=== PATIENT | male | born 1955 | race Caucasian/White ===

== ENCOUNTER 2020-09-05 06:35 | Day surgery (SDC) | payer MEDICARE, BC ==
[2020-09-05] MEDS ORDERED: Sodium Chloride 0.9% 1,000 ML IV SCH (07:00)
[2020-09-05] MEDS ORDERED: fentaNYL 100 MCG/2 ML SDV ONE (07:18)
[2020-09-05] MEDS ORDERED: Midazolam 1 MG/ML 2 ML SDV ONE (07:18)
[2020-09-05] MEDS ORDERED: Propofol 200 MG/20 ML SDV ONE (07:18)
[2020-09-05] MEDS ORDERED: ceFAZolin 1 GM in Premix Bag 1 BAG IV ONE (07:30)
--- NOTE | 2020-09-05 08:32 | OR ---
DATE OF PROCEDURE: 09/05/2020 SURGEON: Oni Lynch MD PROCEDURE: Colonoscopy. FINDINGS: Normal colonoscopy. COMPLICATIONS: None. TELEPHONE MAINTAINER: None. ANESTHESIA: MAC. PREOPERATIVE DIAGNOSIS: Family history of colorectal cancer. POSTOPERATIVE DIAGNOSIS: Family history of colorectal cancer. RISKS: Risks, benefits, alternatives, and limitations including, but not limited to infection, bleeding, and perforation were explained to the patient and he wished to proceed. PROCEDURE IN DETAIL: The patient was placed in left lateral decubitus position. Digital rectal exam was performed without abnormality. Scope was introduced and advanced atraumatically up to the ileocecal valve. A photo was taken of this. No evidence of abnormality was noted. No masses. Scope was brought back to the ascending, transverse, descending colon, and retroflexed. No old or new blood. No masses. No diverticulosis. Prep was marginal with approximately 85% to 90% of the luminal surface could be seen. No abnormalities on retroflexion. The patient tolerated the procedure well. Greater than 10 minutes was spent removing the scope. Oni Lynch MD /[id number]
== END 2020-09-05 09:05 | disposition home or self-care (01) ==
LOC: JP.SDS 06:35
PROVIDERS: ATTEND Surgery
DX: Z12.11 Encounter for screening for malignant neoplasm of colon (principal); I10 Essential (primary) hypertension; K21.9 Gastro-esophageal reflux disease without esophagitis; Z80.0 Family history of malignant neoplasm of digestive organs
CPT/HCPCS: J0690; J2250; J2704; J3010; J7030

== ENCOUNTER 2020-12-28 21:07 | Emergency (ER) | payer MEDICARE, BC ==
[2020-12-28] MEDS ORDERED: Silver Nitrate Applicator Each ONE (21:36)
--- NOTE | 2020-12-28 22:28 | EDM.PDOC ---
ED HPI GENERAL MEDICAL PROBLEM - General Chief Complaint: ENT Problem Stated Complaint: BLOODY NOSE WONT STOP BLEEDING, 3 HRS Time Seen by Provider: 12/28/20 21:26 Source of Information: Reports: Patient History Limitations: Reports: No Limitations - History of Present Illness INITIAL COMMENTS - FREE TEXT/NARRATIVE: Chte is a 65-year-old male presenting to the ED for evaluation of recurrent epistaxis. Patient states that he gets this every spring and fall. He has had recurrent episodes over the day and finally decided to come in because a kept recurring. He takes a full aspirin daily but does not take any other anticoagulants. He denies any trauma. - Related Data Allergies Allergy/AdvReac Type Severity Reaction Status Date / Time No Known Allergies Allergy Verified 12/28/20 21:18 Home Meds: Home Meds Tamsulosin HCl [Flomax] 0.4 mg PO DAILY 09/04/20 [History] lisinopriL [Lisinopril] 10 mg PO DAILY 09/04/20 [History] Aspirin 1 tab PO DAILY 12/28/20 [History] Sildenafil [Revatio] 1 tab PO DAILY 12/28/20 [History] Past Medical History HEENT History: Reports: None Cardiovascular History: Reports: Hypertension Gastrointestinal History: Reports: None Genitourinary History: Reports: Prostate Disorder, Other (See Below) Other Genitourinary History: right kidney CA Musculoskeletal History: Reports: Arthritis Oncologic (Cancer) History: Reports: Other (See Below) Other Oncologic History: kidney ca Dermatologic History: Reports: Benign Melanoma - Past Surgical History HEENT Surgical History: Reports: Adenoidectomy, Tonsillectomy Cardiovascular Surgical History: Reports: None GI Surgical History: Reports: Colonoscopy Male Surgical History: Reports: None Musculoskeletal Surgical History: Reports: Other (See Below) Other Musculoskeletal Surgeries/Procedures:: right ankle surg. left ankle usrg with screws Dermatological Surgical History: Reports: Skin Biopsy Social & Family History - Family History Family Medical History: No Pertinent Family History - Tobacco Use Tobacco Use Status *Q: Never Tobacco User - Caffeine Use Caffeine Use: Reports: Coffee ED ROS ENT - Review of Systems Review Of Systems: See Below Constitutional: Reports: No Symptoms HEENT: Reports: Nosebleed Respiratory: Reports: No Symptoms Cardiovascular: Reports: No Symptoms Endocrine: Reports: No Symptoms GI/Abdominal: Reports: No Symptoms : Reports: No Symptoms Musculoskeletal: Reports: No Symptoms Skin: Reports: No Symptoms Neurological: Reports: No Symptoms Psychiatric: Reports: Hallucinations Hematologic/Lymphatic: Reports: No Symptoms Immunologic: Reports: No Symptoms ED EXAM, ENT - Physical Exam Exam: See Below Exam Limited By: No Limitations General Appearance: Alert, No Apparent Distress Nose: Active Bleeding (Minimal bleeding from an ulcer in the anterior septum of the right naris.). No: Nasal Deformity, Nasal Swelling, Nasal Tenderness, Nasal Ecchymosis, Septal Deformity, Septal Hematoma, Septal Perforation Mouth/Throat: Normal Inspection, Normal Gums, Normal Lips, Normal Oropharynx Head: Atraumatic, Normocephalic Neurological: Alert, Oriented, Normal Cognition, No Motor/Sensory Deficits ED ENT PROCEDURES - Epistaxis Procedure Indication: Controlled Recent anticoagulants/antiplatlets: No Uncontrolled HTN: No Recent septal/nasal surgery: No Site of bleeding: Right Nare Clearing of clots: Patient Blew Nose Topical Meds: Other (1% lidocaine with epinephrine) Ice pack to area: No Chemical cautery: Silver Nitrate Topical Local anesthesia - Lidocaine (Xylocaine): 1% with EPI Local Anesthetic Volume: 1cc Complications: No Course - Vital Signs Last Recorded V/S: Last Vital Signs Temp 36.0 C L 12/28/20 21:25 Pulse 88 12/28/20 21:25 Resp 14 12/28/20 21:25 BP 145/85 H 12/28/20 21:25 Pulse Ox 98 12/28/20 21:25 - Orders/Labs/Meds Meds: Medications Discontinued Medications Generic Name Dose Route Start Last Admin Trade Name Shukri PRN Reason Stop Dose Admin Silver Nitrate Confirm 12/28/20 21:36 Silver Nitrate Administered 12/28/20 21:37 Dose 1 each .ROUTE .STK-MED ONE - Re-Assessments/Exams Free Text/Narrative Re-Assessment/Exam: 12/28/20 22:27 the area was anesthetized using lidocaine 1% with epinephrine, 2 silver nitrate sticks were used to cauterize the area around the ulceration. The patient was observed for 20 minutes without further bleeding. At this time I believe he is suitable for discharge home in satisfactory condition. I did recommend he use [place] nasal saline gel spray at least twice daily to help keep the nose moisturized. He should avoid any nose blowing for the next 24 to 48 hours. Indications return to the ED were discussed and he was suitable for discharge in satisfactory condition. Departure - Departure Time of Disposition: 22:28 Disposition: Home, Self-Care 01 Clinical Impression: Anterior epistaxis - Discharge Information *PRESCRIPTION DRUG MONITORING PROGRAM REVIEWED*: Not Applicable *COPY OF PRESCRIPTION DRUG MONITORING REPORT IN PATIENT JAMMIE: Not Applicable Referrals: Momo Frank EARTH MOVING MACHINE OPERATOR [Primary Care Provider] - Care Plan Goals: I recommend stopping at [facility] or [facility] and picking up [place] nasal saline gel mist I would use 2 squirts in each nostril 1-2 times a day to keep an nose moisturized. Reduce the frequency of epistaxis. You have any significant return of bleeding, please return to the ED for reevaluation. Sepsis Event Note (ED) - Evaluation Sepsis Screening Result: No Definite Risk - Focused Exam Vital Signs: Vital Signs Temp Pulse Resp BP Pulse Ox 12/28/20 21:25 36.0 C L 88 14 145/85 H 98 - Problem List & Annotations (1) Anterior epistaxis SNOMED Code(s): 479956931 Code(s): R04.0 - EPISTAXIS Status: Acute Priority: Medium Current Visit: Yes - Problem List Review Problem List Initiated/Reviewed/Updated: Yes
[2020-12-28] MEDS ORDERED: Silver Nitrate Applicator Each TOP ONE (22:38)
== END 2020-12-28 22:44 | disposition home or self-care (01) ==
LOC: JP.ED 21:07
DX: R04.0 Epistaxis (principal); M19.90 Unspecified osteoarthritis, unspecified site; I10 Essential (primary) hypertension; N42.9 Disorder of prostate, unspecified; Z79.82 Long term (current) use of aspirin; Z79.899 Other long term (current) drug therapy
CPT/HCPCS: 30901; 30903; 99282; 99283-25

== ENCOUNTER 2021-01-06 14:01 | Emergency (ER) | payer MEDICARE, BC ==
[2021-01-06] MEDS ORDERED: Oxymetazoline 0.05% Nasal Spray 30 ML Bottle NAS ONE (15:06)
--- NOTE | 2021-01-06 15:12 | EDM.PDOC ---
ED HPI GENERAL MEDICAL PROBLEM - General Chief Complaint: ENT Problem Stated Complaint: BLOODY NOSE Time Seen by Provider: 01/06/21 15:00 Source of Information: Reports: Patient History Limitations: Reports: No Limitations - History of Present Illness INITIAL COMMENTS - FREE TEXT/NARRATIVE: pt was seen 2 weeks ago for a nose bleed and it was cauderized. He had a bleed today where it was pouring out. Pt is not bleeding at this time. It appears it has clotted over. Onset: Today, Sudden Duration: Hour(s): Location: Reports: Face Associated Symptoms: Reports: No Other Symptoms - Related Data Allergies Allergy/AdvReac Type Severity Reaction Status Date / Time No Known Allergies Allergy Verified 01/06/21 14:51 Home Meds: Home Meds Tamsulosin HCl [Flomax] 0.4 mg PO DAILY 09/04/20 [History] lisinopriL [Lisinopril] 10 mg PO DAILY 09/04/20 [History] Aspirin 1 tab PO DAILY 12/28/20 [History] Sildenafil [Revatio] 1 tab PO DAILY 12/28/20 [History] Past Medical History HEENT History: Reports: None Cardiovascular History: Reports: Hypertension Gastrointestinal History: Reports: None Genitourinary History: Reports: Prostate Disorder, Other (See Below) Other Genitourinary History: right kidney CA Musculoskeletal History: Reports: Arthritis Oncologic (Cancer) History: Reports: Other (See Below) Other Oncologic History: kidney ca Dermatologic History: Reports: Benign Melanoma - Infectious Disease History Infectious Disease History: Reports: Chicken Pox, Measles, Mumps - Past Surgical History Head Surgeries/Procedures: Reports: None HEENT Surgical History: Reports: Adenoidectomy, Tonsillectomy Cardiovascular Surgical History: Reports: None GI Surgical History: Reports: Colonoscopy Male Surgical History: Reports: Other (See Below) Other Male Surgeries/Procedures: right kidney removed for CA Musculoskeletal Surgical History: Reports: Other (See Below) Other Musculoskeletal Surgeries/Procedures:: right ankle surg. left ankle usrg with screws Oncologic Surgical History: Reports: Other (See Below) Other Oncologic Surgeries/Procedures: right kidney removed Dermatological Surgical History: Reports: Skin Biopsy Social & Family History - Family History Family Medical History: No Pertinent Family History - Tobacco Use Tobacco Use Status *Q: Never Tobacco User - Caffeine Use Caffeine Use: Reports: Coffee, Soda, Tea - Alcohol Use Days Per Week of Alcohol Use: 2 Number of Drinks Per Day: 2 Total Drinks Per Week: 4 - Recreational Drug Use Recreational Drug Use: No ED ROS ENT - Review of Systems Review Of Systems: See Below Constitutional: Reports: No Symptoms HEENT: Reports: Nosebleed Respiratory: Reports: No Symptoms Cardiovascular: Reports: No Symptoms Endocrine: Reports: No Symptoms GI/Abdominal: Reports: No Symptoms : Reports: No Symptoms Musculoskeletal: Reports: No Symptoms ED EXAM, ENT - Physical Exam Exam: See Below Text/Narrative:: pt arrived with bleeding from the rt nare.. By the time he was seen the bleeding had stopped. The area in the rt septum looked like it was clotted over. Exam Limited By: No Limitations General Appearance: Alert, Mild Distress Nose: Other ( there is a very irritated area over the rt septum. ) Mouth/Throat: Normal Inspection Course - Vital Signs Last Recorded V/S: Last Vital Signs Temp 37.2 C 01/06/21 15:00 Pulse 96 01/06/21 15:01 Resp 15 01/06/21 15:00 BP 133/88 01/06/21 15:02 Pulse Ox 99 01/06/21 15:00 - Orders/Labs/Meds Meds: Medications Discontinued Medications Generic Name Dose Route Start Last Admin Trade Name Shukri PRN Reason Stop Dose Admin Oxymetazoline HCl 2 ml 01/06/21 15:06 01/06/21 15:46 Nasal Decongestant [place] NABIL 01/06/21 15:07 2 ml ONETIME ONE Administration - Re-Assessments/Exams Free Text/Narrative Re-Assessment/Exam: 01/06/21 16:11 the area was sprayed with afrin and packed anteriorly wioth vaseline guaze. He will spray with afrin tid for the next 3daYS. Departure - Departure Time of Disposition: 16:05 Disposition: Home, Self-Care 01 Condition: Fair Clinical Impression: Nosebleed - Discharge Information Referrals: Momo Frank NP [Primary Care Provider] - Forms: ED Department Discharge Care Plan Goals: cool mist humidifier, leave packing in today and tomorrow, then may remove and start spraying thr rt nare with afrin tid for 3-4 days. then statrt using the dropss that he has. Sepsis Event Note (ED) - Evaluation Sepsis Screening Result: No Definite Risk - Focused Exam Vital Signs: Vital Signs Temp Pulse Resp BP Pulse Ox 01/06/21 15:02 133/88 01/06/21 15:01 96 180/99 H 01/06/21 15:00 37.2 C 95 15 180/99 H 99
== END 2021-01-06 16:31 | disposition home or self-care (01) ==
LOC: JP.ED 14:01
DX: R04.0 Epistaxis (principal); N42.9 Disorder of prostate, unspecified; I10 Essential (primary) hypertension; M19.90 Unspecified osteoarthritis, unspecified site; Z79.82 Long term (current) use of aspirin; Z79.899 Other long term (current) drug therapy
CPT/HCPCS: 99283; A9270; 30901; 99282